=== PATIENT | female | born 1955 | race Caucasian/White ===

== ENCOUNTER 2023-05-28 10:36 | Outpatient (CLI) | payer MEDICARE, OTHER, SELFPAY ==
--- NOTE | 2023-05-28 10:45 | CRLHL7_ITS ---
For Patients: As a result of the Century Cures Act, medical imaging exams and procedure reports are released immediately into your electronic medical record. You may view this report before your referring provider. If you have questions, please contact your health care provider. BILATERAL SCREENING MAMMOGRAM WITH COMPUTER-AIDED DETECTION AND TOMOSYNTHESIS TECHNIQUE: CC and MLO views were obtained. These mammographic images have been obtained using full-field digital technique. These mammographic images were interpreted with the benefit of computer-aided detection. Breast Tomosynthesis was used in this interpretation. COMPARISON FILM: 03/10/19, 03/07/16, 10/12/13. FINDINGS: The breasts are heterogeneously dense, which may obscure small masses IMPRESSION: There is no radiographic evidence for malignancy. ASSESSMENT: BI-RADS Category 1: Negative RECOMMENDATION: Routine screening mammogram in 1 year. A lay language report of this examination will be provided to the patient. Janes Elmore M.D. Diagnostic/Nuclear Medicine Radiologist [email or web address] JUAN PABLO/Dictated by: Janes Elmore MD @ 05/28/2023 11:44:00 AM (Electronically Signed)
== END 2023-05-28 10:37 | disposition home or self-care (01) ==
LOC: MAMMO 10:39
PROVIDERS: PCP Family Medicine; Visit Provider Family Medicine
DX: Z12.31 Encounter for screening mammogram for malignant neoplasm of breast (principal); R92.2 Inconclusive mammogram
CPT/HCPCS: 77063; 77067

== ENCOUNTER 2023-09-11 10:45 | Outpatient (RCR) | payer MEDICARE, OTHER, SELFPAY ==
--- NOTE | 2023-06-15 10:29 | PT.OPEX ---
Please review and sign the attached physical therapy evaluation completed on 06/15/23. Thank you. PT [facility] PT [facility] Outpatient Eval Start: 06/12/23 15:40 Freq: Status: Active Protocol: Document 06/15/23 07:23 TLQ (Rec: 06/15/23 09:00 TLQ [id number]) E-signed By Darlene Carrington DPT Physical Therapy Outpatient Evaluation Insurance Information Recert Due Date 09/13/23 Insurance Name Medicare B Medical Diagnosis Pain in right knee M25.561 Pain in left knee M25.562 Other chronic pain G89.29 Treating Diagnosis Pain in right knee M25.561 Pain in left knee M25.562 Muscle weakness M62.81 Referring MD Barbara Lloyd MD Subjective Subjective T. is a runner, typically running about 3 miles per day x5 days per week. Pain mostly occurs during first 5-10 minutes of her run and then subsides, does some warm-up prior to her run buts states she could probably be better about it. Likely will be running less now that work has picked up again, thinking maybe she needs some additional strength training. Would like to preserve her knees so she can run lateral in life, thought maybe she had arthritis in her knees but was not indicated on imaging. States her pain is only present with running. Marched in a parade over the weekend and thought maybe the walking would bother her knees but does not feel sore this morning. 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 X-rays taken of bilateral knees at [facility] on 05/27/23 with no findings of fracture, dislocation, effusion, or degenerative changes. PMHx: arthritis, BPPV Pain Comments at best: 0/10 at worst: 3-5/10 location: anterior knee, L>R aggravating factors: running Current Work Status [employer] Worker Occupation [employer] Preferred Name There Precautions Therapy Limitations/Systems Review Not Limited Objective Other/Pertinent Objective Knee AROM: WNL BL Pain with quad set on L Lower extremity strength: Hip: flexion 4+ B extension L 4-, R 3+ abduction 4+ B adduction 5 B internal rotation 5 B external rotation 4 B Knee: flexion 4+ B extension 5 B Ankle/foot: dorsiflexion 5 B plantarflexion 25 SLHR, pain in L knee Non-tender with palpation of anterior knee, infrapatellar tendon, MCL/LCL Normal patellofemoral and tibiofemoral joint mobility Gait: normal Single leg balance: 30 seconds BL, more difficult on R Special tests: DIANE (+) for mobility restrictions and mild anterior hip pain BL anterior drawer (-) posterior drawer (-) Fern's test (-) varus stress test (-) valgus stress test (-) Functional Test Performed & Score Functional assessment: DL squat mild valgus instability BL SL squat valgus instability BL , L>R Single leg balance 30 seconds BL Assessment Assessment/Impression Patient is a 68 year old female who presents to physical therapy to address bilateral knee pain, left worse than right, during self- selected physical activity of running. Patient enjoys running 3 miles a day with a average frequency of 5 days per week, she does a brief warm-up but no cross-training at this time. Pain occurs within initial 5-10 minutes of running and then dissipates, located in anterior patellofemoral region bilaterally. X-rays taken at [facility] on 05/27/23 were negative for fracture or degenerative joint changes. No range of motion restrictions observed during today's examination, all special tests for ligamentous and meniscal integrity were negative for pain or pathology. Glute weakness present with strength testing, especially extensors and external rotators. Quad weakness and hip abductor weakness observed through presence of valgus instability during functional squat assessments. When asked to perform a quad set the patient demonstrated a strong contraction on the R, good contraction on L but required increased effort and reproduced symptoms. Patient was educated on the importance of completing a proper warm- up prior to engaging in higher intensity physical activities as well as rest days with completion of cross-training. Therapist also addressed importance of footwear when running, consider buying new shoes depending on current wear/tear and mileage on current running shoes. Patient likely experiencing patellofemoral pain syndrome secondary to muscle weakness/ imbalances. She will benefit from skilled physical therapy interventions to address weakness and instability to reduce pain during preferred physical activities. Primary Functional Limitations bilateral knee pain, running, hip weakness, valgus instability in SLS Plan of Care Rehabilitation Potential Good Physical Therapy Goals In 3-4 visits: - Patient will adhere to 5-10 minute warm-up routine prior to beginning long runs. - Patient will report ability to run with pain <5 minutes of duration of activity. - Patient will adhere to HEP to progress strength and stability interventions. In 6-8 visits: - Patient will demonstrate 5 DL squats without valgus instability. - Patient will report ability to run self-selected distance of 3 miles with <1/10 pain in her knees. - Patient will adhere to recommended training program that includes rest days between distance runs and cross-training for strengthening. Treatment Plan/Direct Interventions Gait Training,Manual Therapy, Neuromuscular Re-ed,Self-Care/ Home Management,Therapeutic Activities,Therapeutic Exercises Frequency/Duration 1x/week for 8 visits Patient Will Be Discharged From Therapy Completion of LTG(s),Skills Plateau,Independent w/HEP, Independently Progressing Evaluation Billing Untimed Code Treatment Minutes 30 Complexity Low Certification Information Initial Certification Date 06/15/23 Ending Certification Date 09/13/23 Provider Signature Shows Agreement With POC & Medical Necessity Physician Signature & Date Requested Please Sign/Date Here Physician Comment/Change : Physician NPI Number #
== END 2023-10-12 08:22 | disposition home or self-care (01) ==
PROVIDERS: PCP Family Medicine; Visit Provider Family Medicine
DX: M25.561 Pain in right knee (principal); M25.562 Pain in left knee; G89.29 Other chronic pain; M62.81 Muscle weakness (generalized); Z51.89 Encounter for other specified aftercare
CPT/HCPCS: 97110; 97161

== ENCOUNTER 2024-05-30 08:08 | Outpatient (CLI) | payer MEDICARE, OTHER, SELFPAY ==
--- OUTSIDE RECORDS SUMMARY | 2024-06-03 00:23 | XMS_ITS | Data Portability ---
Author Organization [place] - [facility] seferino [facility], PATIENT HOME Address [address] [place] [address] Assessment No assessment recorded. Plan of Treatment Reminders Order Date Submit Date Provider Last Modified By Organization Details Last Modified Time Details Appointments None recorded. Lab urinalysis , dipstick 2016 017 [email or web address] [facility], [address], [place], [address], 7 10:47:15 Referral None recorded. Procedures None recorded. Surgeries None recorded. Imaging None recorded. Medication Orders None recorded. Patient TargetsNo targets recorded. Patient Instructions Encounter Date Encounter Id Patient Instructions Last Modified By Organization Details Last Modified Time 08/07/2017 painful urinatio n (dysuria): care instructions [email or web address] Not available 08/07/2017 10:48:43 Reason for Referral None Reported. Results Created Date Observation Date Name Description Value Unit Range Abnormal Flag Note LastModifiedBy Organization Detail LastModifiedTime 08/07/2017 urina lysis , dipst ick leukocytes neg Not Available [facility] [address], [place], [address], 08/07/2017 10:32:05 08/07/2017 urina lysis , dipst ick nitrite neg Not Available [facility] [address], [place], [address], 08/07/2017 10:32:05 08/07/2017 urina lysis , dipst ick urobilinogen neg Not Available [facility] [address], [place], [address], 08/07/2017 10:32:05 08/07/2017 urina lysis , dipst ick protein 15 Not Available [facility] [address], [place], [address], 08/07/2017 10:32:05 08/07/2017 urina lysis , dipst ick pH 5 Not Available [facility] [address], [place], [address], 08/07/2017 10:32:05 08/07/2017 urina lysis , dipst ick blood neg Not Available [facility] [address], [place], [address], 08/07/2017 10:32:05 08/07/2017 urina lysis , dipst ick specific gravity 1.010 Not Available [address], [place], [address], 08/07/2017 10:32:05 08/07/2017 urina lysis , dipst ick ketone neg Not Available [facility] [address], [place], [address], 08/07/2017 10:32:05 08/07/2017 urina lysis , dipst ick bilirubin neg Not Available [facility] [address], [place], [address], 08/07/2017 10:32:05 08/07/2017 urina lysis , dipst ick glucose neg Not Available [facility] [address], [place], [address], 08/07/2017 10:32:05 08/07/2017 urina lysis , dipst ick odor neg Not Available [facility] [address], [place], [address], 08/07/2017 10:32:05 Result Notes None recorded. Medical Equipment None Reported. Allergies No known drug allergies Medications Name Sig Start Date Stop Date Status Note LastModified by Organization Details LastModified Time cephalexin 500 mg capsule 08/07 completed Not Available Not Available Not Available erythromycin 5 mg/gram (0.5 %) eye ointment APPLY 1 RIBBON RIGHT EYE FOUR TIMES DAILY 08/07 completed Not Available Not Available Not Available polymyxin B sulfate 10,000 unit-trimetho prim 1 mg/mL eye drops 08/07 completed Not Available Not Available Not Available codeine 10 mg-guaifenesi n 100 mg/5 mL oral liquid 08/07 completed Not Available Not Available Not Available Vitals Date Recorded Body height Body mass index (BMI) Body weight Heart rate Oxygen saturation Oxygen saturation in Arterial blood by Pulse oximetry Respiratory rate Body temperature Systolic blood pressure Diastolic blood pressure Provider Name and Address Organization Details Last Updated DateTime 7 172.72 cm 23.4 kg/m2 45555.2 2 g 75 /min 97 % 97 % 17 /min 97.7 [degF] 114 mm[Hg] 62 mm[Hg] Bandar Duggan [facility] 7 10:31:40 Social History Question Answer Notes LastModified by Organizat ion Details LastModified Time Tobacco Smoking Status Never Smoker Kristine Lai [facility] 08/07/2017 10:46:13 What Was The Date Of Your Most Recent Tobacco Screening? 08/07/2017 Information n ot available 04/27/2019 Sex: Unknown Functional Status None recorded. Mental Status None recorded. Family History Nothing Reported. Medical History No medical history recorded. Gynecological HistoryNo gynecological history recorded. Obstetrics History GPAL:G 0 P 0 0 0 0 Past Encounters Encounter ID Performer Location Encounter Start Date Encounter Closed Date Diagnosis/Indication Diagnosis SNOMED-CT Code Diagnosis ICD10 Code [id number] Kristine Lai [facility] [address] [place] [address] 08/07/2017 10:22:11 08/07/2017 10:44:55 Dysuria 59417786 R30.0 Health Concerns Section Related Observation LastModified by Organization Detai ls LastModified Time None Recorded Concern Status LastModified by Organization Details LastModified Time None Recorded Advance Directives Directive None Recorded Payers Encounter Date Sequence Insurance Name Policy Number Policy Mclean Covered Member ID Mclean Member ID Guarantor Name 08/07/2017 1 [facility] Jayy Doand [id number] Jayy Shannon Notes Date Note Type Note Provider Name and Address Organization Details Recorded Time 08/07/2017 text/html HPI Notes: Pt presents with 2 weeks of burning with urination at the end of urination. She is drinking water frequently. She states it is worse when she runs. No incontinence. She completed a course of antibiotics a few months ago for the same symptoms, but did not improve. No back pain or abdominal pain. She drinks tea daily. Drinks cranberry juice. She had taken a probiotic but this did not help. No fever. Pain seems to be more external/at end of urination. No vaginal itching/dryness. No blood seen. [facility] 08/07/2017 10:47:26 OBGyn Episode No OBEpisode recorded.
== END 2024-05-30 08:09 | disposition home or self-care (01) ==
LOC: NFLDREF 06-03 00:22
PROVIDERS: PCP Family Medicine; Referring Provider Family Medicine; Visit Provider Family Medicine
DX: Z00.00 Encounter for general adult medical examination without abnormal findings (principal); R53.83 Other fatigue; F41.9 Anxiety disorder, unspecified; E55.9 Vitamin D deficiency, unspecified; E78.5 Hyperlipidemia, unspecified; Z13.6 Encounter for screening for cardiovascular disorders; M81.0 Age-related osteoporosis without current pathological fracture
CPT/HCPCS: 80053; 80061; 82306; 84443

== ENCOUNTER 2024-06-29 07:42 | Outpatient (CLI) | payer MEDICARE, OTHER, SELFPAY ==
--- OUTSIDE RECORDS SUMMARY | 2024-06-29 07:47 | XMS_ITS | Data Portability ---
Author Organization [place] - [facility] seferino [facility], PATIENT HOME Address [address] [place] [address] Assessment No assessment recorded. Plan of Treatment Reminders Order Date Submit Date Provider Last Modified By Organization Details Last Modified Time Details Appointments None recorded. Lab urinalysis , dipstick 2016 017 [email or web address] [facility], [address], [place], [address], 7 10:47:15 Referral None recorded. Procedures None [...] , dipst ick leukocytes neg Not Available [facility] [address], [place], [address], 08/07/2017 10:32:05 08/07/2017 urina lysis , dipst ick nitrite neg Not Available [facility] [address], [place], [address], 08/07/2017 10:32:05 08/07/2017 urina lysis , dipst ick urobilinogen neg Not Available [facility] [address], [place], [address], 08/07/2017 10:32:05 08/07/2017 urina lysis , dipst ick protein 15 Not Available [facility] [address], [place], [address], 08/07/2017 10:32:05 08/07/2017 urina lysis , dipst ick pH 5 Not Available [facility] [address], [place], [address], 08/07/2017 10:32:05 08/07/2017 urina lysis , dipst ick blood neg Not Available [facility] [address], [place], [address], 08/07/2017 10:32:05 08/07/2017 urina lysis , dipst ick specific gravity 1.010 Not Available [address], [place], [address], 08/07/2017 10:32:05 08/07/2017 urina lysis , dipst ick ketone neg Not Available [facility] [address], [place], [address], 08/07/2017 10:32:05 08/07/2017 urina lysis , dipst ick bilirubin neg Not Available [facility] [address], [place], [address], 08/07/2017 10:32:05 08/07/2017 urina lysis , dipst ick glucose neg Not Available [facility] [address], [place], [address], 08/07/2017 10:32:05 08/07/2017 urina lysis , dipst ick odor neg Not Available [facility] [address], [place], [address], 08/07/2017 10:32:05 Result Notes None recorded. Medical [...] Updated DateTime 7 172.72 cm 23.4 kg/m2 82241.2 2 g 75 /min 97 % 97 % 17 /min 97.7 [degF] 114 mm[Hg] 62 mm[Hg] Bandar Duggan [facility] 7 10:31:40 Social History Question Answer Notes LastModified by Organizat ion Details LastModified Time Tobacco Smoking Status Never Smoker Kristine Lai [facility] 08/07/2017 10:46:13 What Was The Date Of [...] Diagnosis/Indication Diagnosis SNOMED-CT Code Diagnosis ICD10 Code [id number] Kristine Lai [facility] [address] [place] [address] 08/07/2017 10:22:11 08/07/2017 10:44:55 Dysuria 73400338 R30.0 Health Concerns Section Related Observation LastModified by Organization Detai ls LastModified Time None Recorded Concern Status LastModified by Organization Details LastModified Time None Recorded Advance Directives Directive None Recorded Payers Encounter Date Sequence Insurance Name Policy Number Policy Mclean Covered Member ID Mclean Member ID Guarantor Name 08/07/2017 1 [facility] Jayy Doand [id number] Jayy Shannon Notes Date Note Type Note [...] No vaginal itching/dryness. No blood seen. [facility] 08/07/2017 10:47:26 OBGyn Episode No OBEpisode recorded.
--- NOTE | 2024-06-29 08:00 | CRLHL7_ITS ---
For Patients: As a result of the Century Cures Act, medical imaging exams and procedure reports are released immediately into your electronic medical record. You may view this report before your referring provider. If you have questions, please contact your health care provider. DXA BONE MINERAL DENSITY STUDY Current height (in): 67.0. Weight (lb): 148.0. Menopause age: 51. Ethnicity: White. Reason for exam: Asymptomatic menopausal state. 1. Have you had a previous hip or vertebral fracture? No. 2. Have you had any fractures during your adult life which did not result from significant trauma (e.g., auto accident)? No. 3. Did either of your parents have a hip fracture? No. 4. Do you smoke? No. 5. Have you ever taken Glucocorticoids? No. 6. Do you have rheumatoid arthritis? No. 7. Do you have secondary osteoporosis? No. 8. Do you drink 3 or more alcoholic drinks per day? No. 9. Are you being treated for osteoporosis? No. 10. Have you ever taken any of the following medications: Actonel, Evista, Fosamax, Miacalcin, Reclast, Boniva, Forteo, HRT (i.e. estrogen/hormone therapy), Protelos, Prolia, Vitamin D, Calcium, other ??? please specify. ANSWER: Yes, vitamin D, calcium. 11. Do you have any of the following medical conditions: Anorexia or bulimia, asthma or emphysema, end stage renal disease, hyperparathyroidism, any seizure disorders, cancer, inflammatory bowel diseases, hysterectomy, other ??? please specify. ANSWER: No. 12. What was your maximum height (inches)? 67. 13. Do you perform weight bearing exercise regularly? Yes. 14. Do you regularly consume dairy products? Yes. 15. Do you drink caffeinated beverages? Yes. 16. At what age did your period start? 13. 17. Are you premenopausal? No. 18. How many full-term pregnancies have you had? 2. 19. Have you ever missed your period for more than 6 months in a row (not including or menopause)? No. TECHNIQUE: Bone mineral density study was performed using the iPipeline. FINDINGS: The results of the study expressed as bone mineral density (BMD) are as follows: Lumbar spine L1 to L4: BMD: 0.995 g/cm2. T-score: -0.5. Z-score: 1.5 Neck Left: BMD: 0.851 g/cm2. T-score: 0.0. Z-score: 1.7 Right: BMD: 0.835 g/cm2. T-score: -0.1. Z-score: 1.6 Total Left: BMD: 1.047 g/cm2. T-score: 0.9. Z-score: 2.3 Right: BMD: 1.051 g/cm2. T-score: 0.9. Z-score: 2.3 IMPRESSION: Normal bone density. *Comparison exams done prior to 03/2020 were performed on different unit, TwitJump. COMPARISON: Compared with scan of 03/10/2019, the bone mineral density has decreased by 5.7 percent at the spine and increased by 6.5 percent at the hip. Alfred Calloway M.D. Body/Diagnostic Radiologist [email or web address] Transcribed: 2:05 pm DW/Dictated by: Alfred Calloway MD @ 06/30/2024 1:19:00 PM (Electronically Signed)
== END 2024-06-29 07:43 | disposition home or self-care (01) ==
PROVIDERS: PCP Family Medicine; Visit Provider Family Medicine
DX: Z78.0 Asymptomatic menopausal state (principal)
CPT/HCPCS: 77080

== ENCOUNTER 2024-07-07 09:18 | Outpatient (RCR) | payer MEDICARE, OTHER, SELFPAY | END 2024-11-04 23:59 | disposition home or self-care (01) | PROVIDERS: PCP Family Medicine; Visit Provider Family Medicine | DX: M25.521 Pain in right elbow (principal); R53.1 Weakness; M77.11 Lateral epicondylitis, right elbow; Z51.89 Encounter for other specified aftercare | CPT/HCPCS: 97110; 97165; X5282 ==

== ENCOUNTER 2024-07-19 17:06 | Outpatient (CLI) | payer MEDICARE, OTHER, SELFPAY ==
--- NOTE | 2024-07-19 17:20 | CRLHL7_ITS ---
For Patients: As a result of the Century Cures Act, medical imaging exams and procedure reports are released immediately into your electronic medical record. You may view this report before your referring provider. If you have questions, please contact your health care provider. BILATERAL SCREENING MAMMOGRAM WITH COMPUTER-AIDED DETECTION AND TOMOSYNTHESIS TECHNIQUE: CC and MLO views were obtained. These mammographic images have been obtained using full-field digital technique. These mammographic images were interpreted with the benefit of computer-aided detection. Breast Tomosynthesis was used in this interpretation. COMPARISON FILM: 05/29/23, 03/10/19, 03/07/16. FINDINGS: The breasts are heterogeneously dense, which may obscure small masses IMPRESSION: There is no radiographic evidence for malignancy. ASSESSMENT: BI-RADS Category 1: Negative RECOMMENDATION: Routine screening mammogram in 1 year. A lay language report of this examination will be provided to the patient. Daron Borrego M.D. Diagnostic Radiologist [email or web address] JACK/[email or web address] Transcribed: 2:59 p.mMohsen taylor/Dictated by: Daron Borrego MD @ 07/25/2024 11:45:00 AM (Electronically Signed)
== END 2024-07-19 17:07 | disposition home or self-care (01) ==
LOC: MAMMO 17:07
PROVIDERS: PCP Family Medicine; Visit Provider Family Medicine
DX: Z12.31 Encounter for screening mammogram for malignant neoplasm of breast (principal); R92.333 Mammographic heterogeneous density, bilateral breasts
CPT/HCPCS: 77063; 77067

== ENCOUNTER 2025-05-16 06:29 | Outpatient (CLI) | payer MEDICARE, OTHER, SELFPAY | END 2025-05-16 06:30 | disposition home or self-care (01) | LOC: NFLDREF 06:30 | PROVIDERS: PCP Family Medicine; Visit Provider Family Medicine | DX: R35.0 Frequency of micturition (principal); N39.0 Urinary tract infection, site not specified; E78.5 Hyperlipidemia, unspecified | CPT/HCPCS: 80053; 80061; 82306; 87086 ==